=== PATIENT | female | born 1975 | race Caucasian/White ===

== ENCOUNTER 2017-08-14 12:37 | Emergency (ER) | payer OTHER ==
[~2017-08-14] VITALS: Ht 160 cm; Wt 122.5 kg
[~2017-08-14 12:37] MED LIST: ALDOMET500 MG PO; AMLODIPINE-OLM1 EAC2; BENADRYL25 MG PO; CEFTIN500 MG PO; COUMADIN10 MG; COZAAR100 MG; DUTOPROL 100-11 EACH; HYZAAR 50-12.1 UDTAB; LABETALOL HCL200 MG PO; LOSARTAN-HCTZ1 EAC2; MEDROLPACK PO; NEURONTIN800 MG; PERCOCET 5/3251 TAB PO; THEO-24100 MG; TOPROL XL25 MG; URIN D.S. TABLE1 TAB PO; XARELTO20 MG; ZANTAC300 MG PO; ZYRTEC10 M3 PO
== END 2017-08-14 22:37 | disposition home or self-care (01) ==
LOC: ER 12:37
DX: M54.5 Low back pain (principal)

== ENCOUNTER 2017-08-16 12:10 | Inpatient (IN) | payer OTHER ==
[~2017-08-16] VITALS: Ht 160 cm; Wt 122.5 kg
== END 2017-09-03 19:57 | disposition home or self-care (01) | DRG 417 ==
LOC: ER 12:10 → O/R 18:16 → SEC-K 18:16 → SURH 18:16 → O/R 08-31 14:30 → SURH 08-31 14:30
PROVIDERS: Surgery
PROC: BW40ZZZ Ultrasonography of Abdomen (ICD-10-PCS; 2017-08-16)
PROC: BF37ZZZ Magnetic Resonance Imaging (MRI) of Pancreas (ICD-10-PCS; 2017-08-16)
PROC: 3E0436Z Introduction of Nutritional Substance into Central Vein, Percutaneous Approach (ICD-10-PCS; 2017-08-22)
PROC: 02HV33Z Insertion of Infusion Device into Superior Vena Cava, Percutaneous Approach (ICD-10-PCS; 2017-08-22)
PROC: 4A033R1 Measurement of Arterial Saturation, Peripheral, Percutaneous Approach (ICD-10-PCS; 2017-08-22)
PROC: BF13YZZ Fluoroscopy of Gallbladder and Bile Ducts using Other Contrast (ICD-10-PCS; 2017-08-31)
PROC: 0FT44ZZ Resection of Gallbladder, Percutaneous Endoscopic Approach (ICD-10-PCS; principal; 2017-08-31 12:00)
DX: K80.00 Calculus of gallbladder with acute cholecystitis without obstruction (principal); K85.10 Biliary acute pancreatitis without necrosis or infection; D68.69 Other thrombophilia; I10 Essential (primary) hypertension; J45.998 Other asthma; E66.01 Morbid (severe) obesity due to excess calories; Z79.01 Long term (current) use of anticoagulants; E27.8 Other specified disorders of adrenal gland